=== PATIENT | male | born 1995 | race Caucasian/White ===

== ENCOUNTER 2017-05-17 14:54 | Emergency (ER) | payer OTHER ==
[~2017-05-17] VITALS: Ht 185.4 cm; Wt 95.8 kg
[2017-05-17 14:59] VITALS: TEMP 36.8; Ht 185.4 cm; Wt 95.8 kg
--- NOTE | 2017-05-17 15:28 | DIAGNOSTIC IMAGING REPORT ---
RIGHT TOE(S) MIN 2 VIEWS CLINICAL HISTORY: Right great toe ecchymosis, swelling, pain. COMPARISON: None. DISCUSSION: No fractures or dislocations are visualized. There are no erosive or destructive changes. IMPRESSION: 1. No acute fractures 2. No destructive lesions are visualized Electronically signed by: Yovani Aiken M.D. 05/17/2017 3:26 PM Dictated Date/Time: 05/17/2017 3:25 PM
[2017-05-17 16:07] VITALS: BP 144/88; PULSE 75; O2SAT 96
--- NOTE | 2017-05-17 17:47 | EMERGENCY ROOM VISIT NOTE ---
History First contact with patient: 15:03 Chief Complaint: TOE PAIN, INJURY Stated Complaint: POSSIBLE BROKEN TOE History of Present Illness The patient is a 21 year old male who presents to the Emergency Room with complaints of a swollen, bruised and painful right great toe. The patient reports that he was playing soccer on Wednesday and kicked the ball at the same time as another player. The patient reported immediate swelling and pain of the toe. When he woke up Wednesday morning, the bruising was worse. He now reports pain with ambulation. He denies any pain extending into the foot region , and denies any paresthesias or numbness of the toe. The patient rates his discomfort a 7 out of 10. Review of Systems 10 system review was performed and was negative except for pertinent positives and negatives as indicated in history of present illness Past Medical/Surgical History Medical Problems: (1) No significant past medical history Surgical Problems: (1) No history of previous surgery Family History FH: cancer FH: diabetes mellitus FH: hypertension Social History Smoking Status: Never Smoker Alcohol Use: occasionally Marital Status: single Occupation Status: [employer] student Current/Historical Medications No Active Prescriptions or Reported Meds Physical Exam Vital Signs Date Time Temp Pulse Resp B/P (MAP) Pulse Ox O2 Delivery O2 Flow Rate FiO2 05/17/17 16:07 75 18 144/88 96 05/17/17 14:59 36.8 71 18 159/102 96 Room Air Physical Exam CONSTITUTIONAL: Healthy and well nourished. Alert and oriented X 3 with positive affect. HEENT: Normocephalic, atraumatic. Pupils equal, round and reactive. NECK: Full active range of motion without discomfort. MUSCULOSKELETAL: Examination of the right great toe shows notable edema and ecchymosis. There are no open wounds. The patient has no tenderness to palpation through the distal first metatarsal region. He has not focal tenderness to palpation of the remainder of the great toe. No nail trauma noted. Capillary refill is less than 2 seconds. IP collateral ligaments are intact. INTEGUMENTARY: No rash or other significant dermatologic conditions noted. NEUROLOGIC: Right great toe is sensory intact. Medical Decision & Procedures ER Provider Diagnostic Interpretation: My interpretation of right great toe x-rays does not show any obvious fractures or dislocations. Radiologist report is as follows: RIGHT TOE(S) MIN 2 VIEWS CLINICAL HISTORY: Right great toe ecchymosis, swelling, pain. COMPARISON: None. DISCUSSION: No fractures or dislocations are visualized. There are no erosive or destructive changes. IMPRESSION: 1. No acute fractures 2. No destructive lesions are visualized ED Course Patient history and physical exam were performed. Nurse's notes were reviewed. Vital signs were reviewed, showing an elevated blood pressure of 159/102. The patient refused any analgesics on initial exam. X-rays of the right great toe were normal. The patient was encouraged to intermittently apply ice and elevate the foot for swelling. Ibuprofen or Tylenol as needed for pain. His toes were maday taped. The patient was offered crutches but refused. He was provided contact information for [facility] should he wish further evaluation, otherwise was told that rest and time should provide adequate treatment for his injury. The patient was happy with plan of care, voiced understanding of all discharge instructions, and rated his pain a 3 out of 10 at the conclusion of my exam. The patient was advised that his blood pressure was elevated in the emergency department, and was encouraged to recheck his blood pressure and follow-up with his family doctor or [facility] as needed for recheck. Medical Decision Blood Pressure Screening Patient's blood pressure: Elevated blood pressure Blood pressure disposition: Elevated BP felt to be situational Impression Primary Impression: Contusion of great toe, right Additional Impression: Elevated blood pressure reading Departure Information Prescriptions No Active Prescriptions or Reported Meds Referrals Radha Harper M.D. (PCP) Patient Instructions [facility] Problem Qualifiers Primary Impression: Contusion of great toe, right Encounter type: initial encounter Damage to nail status: without damage Qualified Codes: S90.111A - Contusion of right great toe without damage to nail , initial encounter
== END 2017-05-17 16:10 | disposition home or self-care (01) ==
LOC: C.EDB 14:56 → C.EDD 16:10
DX: S90.111A Contusion of right great toe without damage to nail, initial encounter (principal); W22.8XXA Striking against or struck by other objects, initial encounter; Y93.66 Activity, soccer; R03.0 Elevated blood-pressure reading, without diagnosis of hypertension; Z80.9 Family history of malignant neoplasm, unspecified; Z83.3 Family history of diabetes mellitus; Z82.49 Family history of ischemic heart disease and other diseases of the circulatory system